=== PATIENT | male | born 1980 | race Caucasian/White ===

== ENCOUNTER 2020-05-13 12:23 | Emergency (ER) | payer MEDICAID ==
[~2020-05-13] VITALS: Ht 185.4 cm; Wt 90.7 kg
[2020-05-13 12:51] VITALS: BP_SYST 139
--- NOTE | 2020-05-13 12:54 | NUR ---
IN [address]
--- NOTE | 2020-05-13 13:05 | NUR ---
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 CUFFS
--- NOTE | 2020-05-13 13:15 | NUR ---
DR BEACH IN TO ASSESS
--- NOTE | 2020-05-13 13:30 | NUR ---
Patient given written and verbal discharge instructions and verbalizes understanding. ER MD discussed with patient the results and treatment provided. Patient in stable condition. ID arm band removed. Patient educated on pain management and to follow up with PMD. Pain Scale 0/10. Opportunity for questions provided and answered. Medication side effect fact sheet provided.
== END 2020-05-13 13:29 | disposition home or self-care (01) ==
LOC: SED 12:23
DX: S61.012A Laceration without foreign body of left thumb without damage to nail, initial encounter (principal); X58.XXXA Exposure to other specified factors, initial encounter; Y93.89 Activity, other specified; Y92.89 Other specified places as the place of occurrence of the external cause; Y99.8 Other external cause status
CPT/HCPCS: 99283